=== PATIENT | female | born 1965 | race Hispanic/Latino ===

== ENCOUNTER 2020-06-06 18:44 | Emergency (ER) | payer SELFPAY ==
[2020-06-06] MEDS ORDERED: KETOROLAC TROMETHAMINE 60 MG/2 ML VIAL ONE (19:30)
== END 2020-06-06 20:12 | disposition home or self-care (01) ==
LOC: EDH 18:44
DX: S52.501A Unspecified fracture of the lower end of right radius, initial encounter for closed fracture (principal); E11.9 Type 2 diabetes mellitus without complications; F32.9 Major depressive disorder, single episode, unspecified; E03.9 Hypothyroidism, unspecified; W18.39XA Other fall on same level, initial encounter; Y93.01 Activity, walking, marching and hiking; Y92.89 Other specified places as the place of occurrence of the external cause; Y99.8 Other external cause status
CPT/HCPCS: 29125; 73090; 73110; 96372; 99284; J1885